=== PATIENT | male | born 1975 | race Caucasian/White ===

== ENCOUNTER → 2019-06-01 | Outpatient (CLI) | payer BC ==
[~2019-06-01] MED LIST: LEXAPRO; MULTIPLE VITAMI1 CAP PO; NO HOME MEDICATIONS; TOPRIMATE; VIT D
== END ==
LOC: COL.VAS 10:45
DX: Z13.6 Encounter for screening for cardiovascular disorders (principal); C43.72 Malignant melanoma of left lower limb, including hip

== ENCOUNTER 2020-04-29 19:30 | Emergency (ER) | payer BC ==
[~2020-04-29] VITALS: Ht 188 cm; Wt 106.8 kg
[2020-04-29 19:46] VITALS: TEMP 98.1
[2020-04-29] MEDS ORDERED: TOPAMAX50 MG PO (19:53)
[2020-04-29 20:04] VITALS: BP 130/77
[2020-04-29 23:05] VITALS: PULSE 62
== END 2020-04-29 23:05 | disposition short-term general hospital (02) ==
LOC: COL.ER 19:30
DX: S02.2XXA Fracture of nasal bones, initial encounter for closed fracture (principal); G93.89 Other specified disorders of brain; W21.03XA Struck by baseball, initial encounter; Y92.830 Public park as the place of occurrence of the external cause
CPT/HCPCS: J0690; J1170; J2405; J7030